=== PATIENT | male | born 1970 | race Caucasian/White ===

== ENCOUNTER 2022-02-06 09:13 | Emergency (ER) | payer OTHER, MEDICAID, SELFPAY ==
--- NOTE | ~2022-02-06 | CT_ITS ---
EXAMINATION: CT HEAD WITHOUT CONTRAST CLINICAL INFORMATION: Status post fall with head strike. COMPARISON: 02/10/[address] scan. TECHNIQUE: Contiguous axial imaging was performed from the skull base to vertex without intravenous administration of contrast. Coronal and sagittal reformatted images were obtained. This CT examination was performed using dose optimization techniques as appropriate, variously including the following: *Automated exposure control *Adjustment of mA and/or kV according to patient size (this includes techniques or standardized protocols for targeted exams where dose is matched to indication/reason for exam; i.e. extremities or head) *Use of iterative reconstruction technique DLP: 694 mGy-cm FINDINGS: There is mild widening of the cortical sulci and associated ventriculomegaly. The lateral ventricles are symmetrical. The third and fourth ventricles are in their normal midline position. The basilar and prepontine cisterns are unremarkable. There is no acute intra or extracerebral abnormality. There is no mass effect or midline shift. Sections through the bony calvarium show incidental hyperostosis frontalis interna and right frontal craniotomy defect without other significant abnormality. The orbits are intact. The paranasal sinuses are clear. The mastoid air cells are clear. CT/CT head/brain wo con IMPRESSION: No acute intracranial pathology.
[2022-02-06 09:37] VITALS: BP 122/74; PULSE 77; RESP 16; TEMP 36.8; O2SAT 99; BMI 38.5
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
[2022-02-06 12:04] VITALS: BP 126/75; PULSE 65; RESP 17; TEMP 36.6; O2SAT 96
== END 2022-02-06 12:08 | disposition home or self-care (01) ==
PROVIDERS: Emergency Provider Emergency Medicine; PCP Nurse Practitioner Family
DX: S00.83XA Contusion of other part of head, initial encounter (principal); Z87.820 Personal history of traumatic brain injury; W01.0XXA Fall on same level from slipping, tripping and stumbling without subsequent striking against object, initial encounter; Y93.9 Activity, unspecified; Y92.009 Unspecified place in unspecified non-institutional (private) residence as the place of occurrence of the external cause; Y99.9 Unspecified external cause status
CPT/HCPCS: 70450; 99284

== ENCOUNTER 2022-05-15 11:15 | Outpatient (REF) | payer OTHER, MEDICAID, SELFPAY ==
--- NOTE | ~2022-05-15 | US_ITS ---
EXAMINATION: US VENOUS ULTRASOUND WITH DOPPLER LOWER EXTREMITY, RIGHT CLINICAL INFORMATION: Right leg swelling. COMPARISON: Deep vein ultrasound from 11/30/2013 and 05/22/2018. TECHNIQUE: Ultrasound of the deep veins is performed from the hip to the calf with compression sonography and color and pulse Doppler assessment. Spectral analysis with color-flow imaging is performed. FINDINGS: Nonocclusive thrombus is present along the wall of the common femoral vein. Also, there is extensive thrombus of the femoral vein within the proximal, mid and lower thigh. The majority of the thrombus is partially occlusive. However, in the lower thigh, the thrombus completely fills the lumen of the vein and is occlusive. The thrombus of the popliteal vein is partially occlusive. There is limited visualization of calf veins. The peroneal veins cannot be visualized for diagnostic assessment. The posterior tibial veins are not optimally seen. The visualized tibial veins are compressible. Within the proximal thigh, the visualized saphenous vein is patent. No Mcclure's cyst. 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 There is limited visualization of the calf veins. The critical test result was discussed with Dr. Paola Donovan at 12:50 PM on 05/15/2022 and it was ascertained that the content and the importance of the findings was understood at the time of the direct communication.
== END 2022-05-15 11:16 | disposition home or self-care (01) ==
LOC: HO.US 11:15
PROVIDERS: PCP Nurse Practitioner Family; Visit Provider Nurse Practitioner Family
DX: R60.0 Localized edema (principal)
CPT/HCPCS: 93971

== ENCOUNTER 2023-05-05 10:18 | Outpatient (REF) | payer OTHER, MEDICAID, SELFPAY ==
[2023-05-05 11:04] LABS: Anion Gap 11 (12-20); Carbon Dioxide 26 mmol/L (22-29); Chloride 109 mmol/L (96-108); Potassium 4.5 mmol/L (3.3-5.1); Sodium 141 mmol/L (135-145)
[2023-05-05 11:07] LABS: Carbamazepine Tegretol 12.6 mcg/mL (5.0-12.0)
== END 2023-05-05 10:19 | disposition home or self-care (01) ==
LOC: HO.LAB 10:18
PROVIDERS: PCP Nurse Practitioner Family; Visit Provider Psychiatry & Neurology Neurology
DX: G40.909 Epilepsy, unspecified, not intractable, without status epilepticus (principal); Z79.899 Other long term (current) drug therapy
CPT/HCPCS: 36415; 80051; 80156

== ENCOUNTER 2023-06-10 07:37 | Outpatient (REF) | payer OTHER, MEDICAID, SELFPAY ==
--- NOTE | ~2023-06-10 | CT_ITS ---
EXAMINATION: CT HEAD WITHOUT CONTRAST CLINICAL INFORMATION: 53-year-old with seizure disorder. COMPARISON: 02/06/2022 CT brain. TECHNIQUE: Contiguous axial imaging was performed from the skull base to vertex without intravenous administration of contrast. This CT examination was performed using dose optimization techniques as appropriate, variously including the following: *Automated exposure control *Adjustment of mA and/or kV according to patient size (this includes techniques or standardized protocols for targeted exams where dose is matched to indication/reason for exam; i.e. extremities or head) *Use of iterative reconstruction technique DLP: 984 mGy-cm FINDINGS: Brain Volume: There is moderate generalized diffuse infratentorial and supratentorial brain parenchymal volume loss, grossly unchanged in appearance. Structural: No malformations. Brain and Meninges: Caceres-white matter differentiation appears grossly maintained. No acute territorial infarct, hemorrhage, extra-axial fluid collection, space-occupying process, or mass effect. Note is made of what appears to be some encephalomalacia involving the right parasylvian frontotemporal cortical and subcortical regions, which is stable in appearance from the previous study and is nonspecific, possibly reflecting remote trauma or other remote etiology. Correlate with patient's clinical history. Ventricles and Subarachnoid Spaces: The ventricular system and subarachnoid spaces are consistent with generalized diffuse volume loss without hydrocephalus, stable in appearance. Orbital Structures: Grossly unremarkable within the limitations of the study. Osseous Structures, Sinuses/Mastoids, Extracranial Soft Tissues: Redemonstrated is hyperostosis frontalis interna, which is an anatomic variant in addition to a right frontal convexity fabi hole craniostomy, unchanged in appearance. The visualized airspaces demonstrate a small retention cyst in the sphenoid sinus on the right and a tiny retention cyst in the anterior right maxillary sinus. The visualized extracranial soft tissue structures are grossly unremarkable. CT/CT head/brain wo IV con IMPRESSION: 1. No acute intracranial process. No interval change from previous study in right parasylvian frontotemporal encephalomalacia. Correlate with EEG findings. 2. Moderate generalized diffuse brain parenchymal volume loss without hydrocephalus, unchanged in appearance.
== END 2023-06-10 07:38 | disposition home or self-care (01) ==
LOC: HO.CT 07:37
PROVIDERS: PCP Nurse Practitioner Family; Visit Provider Psychiatry & Neurology Neurology
DX: G40.909 Epilepsy, unspecified, not intractable, without status epilepticus (principal)
CPT/HCPCS: 70450

== ENCOUNTER 2023-11-01 11:11 | Emergency (ER) | payer OTHER, MEDICAID, SELFPAY ==
--- NOTE | ~2023-11-01 | CT_ITS ---
EXAMINATION: CT HEAD WITHOUT IV CONTRAST CT CERVICAL SPINE WITHOUT IV CONTRAST INDICATION: Fall on Coumadin COMPARISON: MRI brain on 06/10/2023 TECHNIQUE: Multidetector CT acquisitions of the head and cervical spine were obtained without IV contrast. Multiplanar reformats were acquired and utilized for image interpretation. This CT examination was performed using dose optimization techniques as appropriate, variously including the following: *Automated exposure control *Adjustment of mA and/or kV according to patient size (this includes techniques or standardized protocols for targeted exams where dose is matched to indication/reason for exam; i.e. extremities or head) *Use of iterative reconstruction technique FINDINGS: HEAD: No acute intracranial hemorrhage or infarct. The dawn-white matter differentiation is preserved. Unchanged encephalomalacic changes in the right temporal lobe. No midline shift or hydrocephalus. The ventricular system is unchanged in configuration or size. The normal acute extra-axial fluid collections. Hyperostosis frontalis interna. The osseous structures are otherwise unremarkable. No orbital pathology. Mild mucosal thickening of the paranasal sinuses. The mastoid air cells are clear. CERVICAL SPINE: There is no acute fracture and there is no acute subluxation. The craniocervical and atlantoaxial articulations are normal. Multilevel degenerative changes including endplate osteophytosis, disc space narrowing, and uncovertebral hypertrophy. Mild degenerative retrolisthesis at C4-C5. There is no prevertebral soft tissue swelling. No significant soft tissue abnormality within the neck. The visualized lung apices are clear. CT/CT head/brain wo IV con IMPRESSION: No acute intracranial abnormality. No acute osseous abnormality within the cervical spine.
--- NOTE | ~2023-11-01 | XR_ITS ---
EXAMINATION: XR FOREARM, RIGHT CLINICAL INFORMATION: Deformity COMPARISON: None available. TECHNIQUE: AP and lateral views of the right forearm were obtained. FINDINGS: The bones and soft tissues are normal. No fracture. Imaged portions of the elbow and wrist are unremarkable. XR/XR forearm RT 2V IMPRESSION: No radiographic evidence of acute fracture or dislocation.
--- NOTE | ~2023-11-01 | CT_ITS ---
EXAMINATION: CT HEAD WITHOUT IV CONTRAST CT CERVICAL SPINE WITHOUT IV CONTRAST INDICATION: Fall on Coumadin COMPARISON: MRI brain on 06/10/2023 TECHNIQUE: Multidetector CT acquisitions of the head and cervical spine were obtained without IV contrast. Multiplanar reformats were acquired and utilized for image interpretation. This CT examination was performed using dose optimization techniques as appropriate, variously including the following: *Automated exposure control *Adjustment of mA and/or kV according to patient size (this includes techniques or standardized protocols for targeted exams where dose is matched to indication/reason for exam; i.e. extremities or head) *Use of iterative reconstruction technique FINDINGS: HEAD: No acute intracranial hemorrhage or infarct. The dawn-white matter differentiation is preserved. Unchanged encephalomalacic changes in the right temporal lobe. No midline shift or hydrocephalus. The ventricular system is unchanged in configuration or size. The normal acute extra-axial fluid collections. Hyperostosis frontalis interna. The osseous structures are otherwise unremarkable. No orbital pathology. Mild mucosal thickening of the paranasal sinuses. The mastoid air cells are clear. CERVICAL SPINE: There is no acute fracture and there is no acute subluxation. The craniocervical and atlantoaxial articulations are normal. Multilevel degenerative changes including endplate osteophytosis, disc space narrowing, and uncovertebral hypertrophy. Mild degenerative retrolisthesis at C4-C5. There is no prevertebral soft tissue swelling. No significant soft tissue abnormality within the neck. The visualized lung apices are clear. CT/CT cervical spine wo IV con IMPRESSION: No acute intracranial abnormality. No acute osseous abnormality within the cervical spine.
[2023-11-01 11:20] VITALS: BP 126/78; BP 143/72; PULSE 83; PULSE 93; TEMP 36.8; O2SAT 93; O2SAT 96; BMI 38.5
--- NOTE | 2023-11-01 11:22 | PC.NURSE ---
a&ox4, vss and up to date, nsr on the resume writer. pt presents to the ED d/t a new onset seizure. pt has a hx of seizures. states last one was a year ago. pt states he is compliant w/ meds but believes there is a med error w/ most recent prescription brought to his house. pt verbalizes dizziness x 1 week. seizure precautions in place. currently c/o headache/dizziness/lightheadedness. no sob/wob noted. respirations even and unlabored. mother bedside for support. call hodgson placed within reach.
--- NOTE | 2023-11-01 11:43 | ECG_ITS ---
Test Reason : SEIZURE Blood Pressure : / mmHG Vent. Rate : 076 BPM Atrial Rate : 076 BPM P-R Int : 158 ms QRS Dur : 096 ms QT Int : 374 ms P-R-T Axes : 055 -02 -18 degrees QTc Int : 420 ms Normal sinus rhythm Nonspecific ST abnormality Abnormal ECG When compared with ECG of 27-FEB-2020 06:54, No significant change was found Referred By: Leslie Crawford Electronically Signed By:BRYON ARIAS
--- NOTE | 2023-11-01 12:13 | PC.NURSE ---
labs obtained/sent by [facility].
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
[2023-11-01 12:19] LABS: MANUAL DIFF FLAG NO
[2023-11-01 12:20] LABS: Basophils Percent Auto 0.3 % (0-2); Eosinophils Absolute Auto 0.1 X10*3/uL (0.0-0.4); Eosinophils Percent Auto 1.3 % (0-4); Hematocrit 32.1 % (42.0-52.0); Hemoglobin 9.6 g/dl (14.0-18.0); Imm Gran Abs Auto 0.03 X10*3/uL (0.00-0.03); Imm Gran Pct Auto 0.4 % (0.0-0.4); Lymphocytes Absolute Auto 1.5 X10*3/uL (1.2-4.9); Lymphocytes Percent Auto 19.6 % (20-40); Mean Corpuscular HGB Conc 29.9 g/dl (31.0-36.0); Mean Corpuscular Hemoglobin 23.8 pg (27.0-33.0); Mean Corpuscular Volume 79.7 fL (80.0-98.0); Mean Platelet Volume 8.7 fL (9.4-12.4); Monocytes Absolute Auto 0.5 X10*3/uL (0.1-1.2); Monocytes Percent Auto 6.3 % (2-11); Neutrophils Absolute Auto 5.4 x10*3/uL (2.0-8.3); Neutrophils Percent Auto 72.1 % (45-73); Platelet Count 220 X10*3/uL (160-400); Red Blood Count 4.03 X10*6/uL (4.60-5.80); Red Cell Distribution Width 22.6 % (11.0-16.0); White Blood Count 7.5 X10*3/uL (4.8-10.8)
[2023-11-01 12:25] LABS: INTERNATIONAL NORM RATIO 3.1 (0.9-1.1); Prothrombin Time 37.7 SEC (11.1-13.3)
[2023-11-01 12:34] LABS: Alanine Aminotransferase 13 U/L (0-40); Albumin Level 3.5 g/dL (3.5-5.0); Alkaline Phosphatase 131 U/L (39-117); Anion Gap 11 (12-20); Aspartate Amino Transferase 12 U/L (5-37); Bilirubin Total 0.2 mg/dL (0.0-1.0); Blood Urea Nitrogen 12 mg/dL (9-16); Calcium 8.5 mg/dL (8.4-10.2); Carbon Dioxide 25 mmol/L (22-29); Chloride 110 mmol/L (96-108); Creatinine Clr Calc Pharmacy 149.3; Estimated Glomerular Filt Rate > 60; Glucose Random 135 mg/dL (60-115); Potassium 4.1 mmol/L (3.3-5.1); Sodium 142 mmol/L (135-145); Total Protein 6.8 g/dL (6.5-8.0)
--- NOTE | 2023-11-01 12:34 | PC.NURSE ---
pt to CT at this time.
[2023-11-01 12:37] LABS: Carbamazepine Tegretol 12.8 mcg/mL (5.0-12.0)
[2023-11-01 12:41] LABS: COVID-19 Test Negative (Negative); IDNOW Serial# 08D9AD1C
[2023-11-01 12:42] LABS: IDNOW Serial# 152EDE1D; Influenza A Negative (Negative); Influenza B2 Negative (Negative)
[2023-11-01 14:35] VITALS: BP 114/63; PULSE 69; RESP 16; O2SAT 97
--- NOTE | 2023-11-01 14:35 | PC.NURSE ---
vss and up to date. nsr on the alarm security or surveillance monitor. pt continues to rest in no apparent distress at this time. pt c/o slight WARD at this time. respirations remain even and unlabored. seizure precautions remain in place. mother bedside for support. call hodgson placed within reach.
--- NOTE | 2023-11-01 15:19 | PC.NURSE ---
urine obtained/sent to lab.
[2023-11-01 15:30] LABS: Appearance Urine Clear; Color Urine Yellow; Glucose Urine UA Negative (Negative); Leukocyte Esterase Urine Negative (Negative); Nitrite Urine Negative (Negative); Urine Blood Negative (Negative); Urine Ketones Negative (Negative); Urine Protein Negative (Neg-Trace)
--- NOTE | 2023-11-01 15:57 | PC.NURSE ---
pt able to ambulate w/ steady gait w/ use of walker for assistance prior to ED departure.
== END 2023-11-01 15:57 | disposition home or self-care (01) ==
PROVIDERS: Emergency Provider Student in an Organized Health Care Education/Training Program; PCP Nurse Practitioner Family
DX: R55 Syncope and collapse (principal); R79.1 Abnormal coagulation profile; Z11.52 Encounter for screening for COVID-19; Z87.820 Personal history of traumatic brain injury
CPT/HCPCS: 36415; 70450; 72125; 73090; 80053; 80156; 81003; 85025; 85610; 87502; 87635; 93005; 99284; 99285

== ENCOUNTER → 2023-11-01 11:43 | Outpatient (BNV) | payer OTHER, MEDICAID, SELFPAY | PROVIDERS: Emergency Provider Student in an Organized Health Care Education/Training Program; PCP Nurse Practitioner Family; Visit Provider Internal Medicine | DX: R94.31 Abnormal electrocardiogram [ECG] [EKG] (principal) | CPT/HCPCS: 93010 ==

== ENCOUNTER 2024-10-16 09:57 | Emergency (ER) | payer MEDICARE, SELFPAY ==
--- NOTE | ~2024-10-16 | XR_ITS ---
CLINICAL HISTORY: fall on anticoagulation, closed head injury 1 view chest x-ray Comparison: None Findings: The lungs are adequately expanded. No focal confluent opacity. No effusion or pneumothorax. Cardiac and mediastinal contours are within normal limits. No acute osseous abnormality. The tip of the right-sided chest port is in the upper SVC. Impression: No acute process. This document has been electronically signed by: Prince Mcdonald MD on 10/16/2024 11:59:12
--- NOTE | ~2024-10-16 | CT_ITS ---
CLINICAL HISTORY: fall on anticoagulation, closed head injury CT head without contrast Comparison: CT/REG/SR - CT HEAD/BRAIN WO IV CON - 11/01/23 12:33 EST Findings: Moderate cerebral atrophy and compensatory ventriculomegaly. Encephalomalacia in the right temporal lobe, unchanged from prior. No intracranial hemorrhage, mass effect or midline shift. There is no sinus or mastoid fluid. The orbits are within normal limits. There is a right frontal fabi hole present. No acute skull fracture. IMPRESSION: 1. No acute intracranial findings This document has been electronically signed by: Marco Canela MD on 10/16/2024 22:20:33
[2024-10-16 10:38] VITALS: BP 101/64; PULSE 77; RESP 18; TEMP 36.1; O2SAT 94; BMI 36.7
--- NOTE | 2024-10-16 11:36 | ECG_ITS ---
Test Reason : FALL ON ANTICOAGULATION, CLOSED HEAD INJURY Blood Pressure : / mmHG Vent. Rate : 067 BPM Atrial Rate : 067 BPM P-R Int : 174 ms QRS Dur : 090 ms QT Int : 386 ms P-R-T Axes : 014 -08 -04 degrees QTc Int : 407 ms Normal sinus rhythm Nonspecific ST abnormality Abnormal ECG When compared with ECG of 01-NOV-2023 12:05, No significant change was found Referred By: Filomena Scruggs Electronically Signed By:EUSEBIA SPAULDING MD
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
--- OUTSIDE RECORDS SUMMARY | 2024-10-16 12:06 | XMS_ITS | Continuity of Care Document ---
Author Organization [facility] ancer Care Address [address] [place] [address]- Care Team Providers Care Mandarin Teacher Name Role Phone Zion PADILLA, Paola Nevarez Primary Care Physician Encounter [facility] Date(s): 09/15/24 - 10/15/24 [facility] [address] [place] [id number] Attending Physician: Admtr, Loli Admitting Physician: Admtr, Loli Referring Physician: Admtr, Ar8 Encounter Type: Triage Allergies, Adverse Reactions, Alerts Substance Criticality Severity Reaction Reaction Severity Status simvastatin Active Dilantin Active Percocet 7.5/325 VOMITING Act chauncey CeleXA seizure Active Immunizations Given and Recorded Vaccine Date Status Refusal Reason pneumococcal 20-valent conjugate vaccine 09/15/24 Given influenza virus vaccine, inactivated 07/18/23 Give n influenza virus vaccine, inactivated 10/18/21 Cristo rded influenza virus vaccine, inactivated 08/06/19 Give n influenza virus vaccine, inactivated 07/10/18 Give n influenza virus vaccine, inactivated 1 07/31/17 Gi amari influenza virus vaccine, inactivated 09/18/16 Give n influenza virus vaccine, inactivated 07/11/15 Give n influenza virus vaccine, inactivated 06/28/14 Cristo rded influenza virus vaccine, inactivated 2 07/21/13 Gi amari influenza virus vaccine, inactivated 07/19/13 Cristo rded influenza virus vaccine, inactivated 3 07/13/12 Gi amari influenza virus vaccine, inactivated 05/30/12 Cristo rded influenza virus vaccine, inactivated 4 06/14/10 Gi amari SARS-CoV-2 mRNA ([id number]-[id number]) vax 10/18/21 Recorded SARS-CoV-2 (COVID-19) mRNA BNT-162b2 vac 03/02/21 Given SARS-CoV-2 (COVID-19) mRNA BNT-162b2 vac 02/09/21 Given pneumococcal 23-valent vaccine 10/24/19 Given tetanus-diphtheria toxoids (Td) 07/06/15 Recorded tetanus-diphtheria toxoids (Td) 09/14/03 Given tetanus/diphtheria/pertussis, acel(Tdap) 06/03/14 Given Fluvirin (oldterm) 5 06/18/11 Given Influenza Virus Vaccine (oldterm) 6 07/04/09 Given Influenza Virus Vaccine (oldterm) 07/21/08 Given Influenza Inactive (IM) (oldterm) 08/14/07 Given 1Result Comment: [07/31/2017] [facility] [id number] 2Admin Note: given at [address] Note: [facility]Ain Note: Received at [address] Note: GIVEN AT [address] Note: GIVEN BY DES SEWELL BY RENE Donnelly Advair HFA 115 mcg / 21 mcg 2 puffs, Inhalation, 2 times a day, BULK., # 12 Gm, 5 Refills, Maintenance, 08/27/24 4:15:00 PM EST, [facility], 30, INHALE TWO PUFFS BY MOUTH TWICE A DAY (BULK), 188, cm, 08/23/24 11:22:00 EST, Height, 138.1, kg, 08/23/24 11:22:00 EST, Dry Weight Start Date: 08/27/24 Status: Ordered Quantity: 12.0 Unit: g Repeat number: 1 amitriptyline 50 mg oral tablet 1 tablet = 50 mg, By Mouth, Daily at bedtime, 0 Refills, Maintenance, 09/18/16 10:14:57 AM EST Start Date: 09/18/16 Status: Ordered Repeat number: 1 atorvastatin 10 mg oral tablet 1 tablet, By Mouth, Daily, ^1R4., # 28 tablet, 10 Refills, Maintenance, 08/30/24 11:37:00 AM EST, [facility], 188, cm, 08/23/24 11:22:00 EST, Height, 138.1, kg, 08/23/24 11:22:00 EST, Dry Weight Start Date: 08/30/24 Status: Ordered Quantity: 28.0 Unit: tablet Repeat number: 1 Cane See Instructions, # 1 each, Refills 0, Tot. Refills 0, Maintenance, dx: use as directed for foot pain/gait disturbance, 08/04/14 11:36:38 AM EDT, Compound Start Date: 08/04/14 Status: Ordered Quantity: 1.0 Unit: each Repeat number: 1 Carbatrol 300 mg oral capsule, extended release 1 capsule = 300 mg, By Mouth, 3 times a day, # 60 capsule, 0 Refills, Maintenance, 09/18/16 10:13:37AM EST, CR Capsule Start Date: 09/18/16 Status: Ordered Quantity: 60.0 Unit: capsule Repeat number: 1 colestipol 1 gm oral tablet 1 tablet = 1 Gm, By Mouth, 2 times a day, # 100 tablet, 1 Refills, Maintenance, 08/30/24 4:11:00 PMEST, Tablet, [facility] #[id number], Partial fill upon patient request if the prescription is for a schedule II opioid drug., 188, cm, 08/30/24 11:29:00 EST, Height, 137.7, kg, 08/30/24 11:29:00EST, Dry Weight Start Date: 08/30/24 Status: Ordered Quantity: 100.0 Unit: tablet Repeat number: 2 docusate sodium 100 mg oral capsule 1 capsule = 100 mg, By Mouth, 2 times a day, PRN for constipation, # 60 capsule, 4 Refills, Maintenance, 12/25/23 11:58:00 AM EDT, Capsule, [facility] #[id number], Partial fill upon patient request if the prescription is for a schedule II opioid drug., 188, cm, 12/25/23 11:33:00 EDT, Height, 138, kg, 12/15/23 16:43:00 EST, Dry Weight Start Date: 12/25/23 Status: Ordered Quantity: 60.0 Unit: capsule Repeat number: 5 enoxaparin 150 mg/mL injectable solution = 135 mg, Subcutaneous Injection, Every 12 hours, # 180 each, 1 Refills, Maintenance, 06/28/24 10:28:00 AM EDT, Solution, [facility] #[id number], Partial fill upon patient request if the prescription is for a schedule II opioid drug., 188, cm, 06/28/24 10:00:00 EDT, Height, 138.9, kg, 06/28/24 1 0:00:00 EDT, Dry Weight Start Date: 06/28/24 Stop Date: 12/25/24 Status: Ordered Quantity: 180.0 Unit: each Repeat number: 2 famotidine 20 mg oral tablet 20 mg, 1, tablet, By Mouth, Daily, # 180 tablet, Refills 0, Tot. Refills 0, Maintenance, 06/29/24 3:47:00 PM EDT, Route to Pharmacy Electronically, [facility] #[id number], Partial fill upon patient request if the prescription is for a schedule II opioid drug., 188, cm, 06/28/24 10:00:00 EDT, Height, 138.9, kg, 06/28/24 10:00:00 EDT, Dry Weight Start Date: 06/29/24 Status: Ordered Quantity: 180.0 Unit: tablet Repeat number: 1 ferrous sulfate 325 mg oral enteric coated tablet 1, tablet, By Mouth, Daily, # 30 tablet, Refills 5, Maintenance, 08/08/24 10:42:00 AM EDT, Route toPharmacy Electronically, [facility] #[id number], 188, cm, 07/26/24 12:48:00 EDT, Height, 139.3, kg, 07/26/24 12:48:00 EDT, Dry Weight Start Date: 08/08/24 Status: Ordered Quantity: 30.0 Unit: tablet Repeat number: 1 levothyroxine 0.1 mg oral tablet 1 tablet, By Mouth, Daily, # 30 tablet, 2 Refills, Maintenance, 05/16/21 10:10:00 AM EDT, [facility] #[id number], 188, cm, 03/29/21 2:00:00 EDT, Height, 138.4, kg, 03/29/21 2:00:00 EDT, Dry Weight Start Date: 05/16/21 Status: Ordered Quantity: 30.0 Unit: tablet Repeat number: 1 lift chair lift chair, See Instructions, # 1 each, Refills 0, Tot. Refills 0, Maintenance, DX: Traumatic BrainInjury S06.9XAA, Seizure R56.9, Ractal Cancer C20, Severe Obesity E66.01, 09/27/24 1:09:00 PM EST, Supply Start Date: 09/27/24 Status: Ordered Quantity: 1.0 Unit: each Repeat number: 1 Lomotil 0.025 mg-2.5 mg oral tablet 2, tablet, By Mouth, 4 times a day, PRN, # 100 tablet, Refills 1, Tot. Refills 1, Maintenance, for loose stool, 08/30/24 4:11:00 PM EST, Route to Pharmacy Electronically, [facility] #[id number] Tablet, Partial fill upon patient request if the prescription is for a schedule II opioid drug., 188, cm, 08/30/24 11:29:00 EST, Height, 137.7, kg, 08/30/24 11:29:00 EST, Dry Weight Start Date: 08/30/24 Status: Ordered Quantity: 100.0 Unit: tablet Repeat number: 2 loperamide 2 mg oral tablet See Instructions, Take 2 tablets after the first diarrhea and then 1 tablet after each subsequent diarrhea. not to exceed 8 capsules, or 16 mg, in 24 hours, # 90 tablet, 0 Refills, Maintenance, 06/28/24 10:28:00 AM EDT, [facility] #[id number], Partial fill upon patient request if the prescription is for a schedule II opioid drug., 188, cm, 06/28/24 10:00:00 EDT, Height, 138.9, kg, 06/28/24 10:00:00 EDT, Dry Weight Start Date: 06/28/24 Status: Ordered Quantity: 90.0 Unit: tablet Repeat number: 1 LR IV Infusion, 0 Refills, Maintenance Start Date: 12/19/23 Status: Ordered Repeat number: 1 LR IV Infusion, LR for endoscopy procedure then d'c, 0 Refills, Maintenance Start Date: 12/19/23 Status: Ordered Repeat number: 1 omeprazole 20 mg oral enteric coated capsule 1 capsule, By Mouth, Daily, ^1R1., # 30 capsule, 5 Refills, Maintenance, 09/24/24 7:46:00 AM EST, [facility], Please ask patient to call the office and schedule an appt for further refills, 188, cm, 09/23/24 9:11:00 EST, Height, 138, kg, 09/06/24 8:07:00 EST, Dry Weight Start Date: 09/24/24 Status: Ordered Quantity: 30.0 Unit: capsule Repeat number: 6 ondansetron 4 mg oral tablet, disintegrating 2 tablet = 8 mg, By Mouth, Every 8 hours, PRN as needed for nausea/vomiting, # 180 tablet, 1 Refills, Maintenance, 06/28/24 10:28:00 AM EDT, DIS Tablet, [facility] #[id number], Partial fill upon patient request if the prescription is for a schedule II opioid drug., 188, cm, 06/28/24 10:00:00 EDT, Height, 138.9, kg, 06/28/24 10:00:00 EDT, Dry Weight Start Date: 06/28/24 Status: Ordered Quantity: 180.0 Unit: tablet Repeat number: 2 prochlorperazine 10 mg oral tablet 1 tablet, By Mouth, 4 times a day, PRN NEEDED FOR NAUSEA OR VOMITING, # 360 tablet, 0 Refills, Maintenance, 10/13/24 12:49:00 PM EST, [facility] #[id number], 188, cm, 10/12/24 14:49:00 EST, Height, 133.9, kg, 10/12/24 14:49:00 EST, Dry Weight Start Date: 10/13/24 Status: Ordered Quantity: 360.0 Unit: tablet Repeat number: 1 TEGretol 100 mg oral tablet, chewable 100 mg, 1, tablet, By Mouth, Daily at bedtime, Refills 0, Maintenance, 09/18/16 10:13:10 AM EST Start Date: 09/18/16 Status: Ordered Repeat number: 1 ultrasound right and LLE rule out DVT ultrasound right and LLE rule out DVT, See Instructions, # 1 kit, Refills 0, Tot. Refills 0, Maintenance, call [phone] to book ultrasound TODAY!, 03/29/21 1:38:00 AM EDT, Supply Start Date: 03/29/21 Status: Ordered Quantity: 1.0 Unit: kit Repeat number: 1 Ventolin HFA 108 mcg/inh inhalation aerosol with adapter 2 puffs, Inhalation, Every 4 hours, PRN IF NEEDED FOR WHEEZING (BULK), # 18 Gm, 5 Refills, Maintenance, 08/27/24 4:15:00 PM EST, [facility], 188, cm, 08/23/24 11:22:00 EST, Height, 138.1, kg,08/23/24 11:22:00 EST, Dry Weight Start Date: 08/27/24 Status: Ordered Quantity: 18.0 Unit: g Repeat number: 1 Vimpat 150 mg oral tablet 1 tablet = 150 mg, By Mouth, 2 times a day, # 28 tablet, 0 Refills, Maintenance, 10/24/19 11:29:00 AM EST, Tablet, [facility] #[id number], 188, cm, 10/24/19 7:40:00 EST, Height, 136.5, kg, 10/23/19 22:04:00 EST, Dry Weight Start Date: 10/24/19 Stop Date: 11/07/19 Status: Ordered Quantity: 28.0 Unit: tablet Repeat number: 1 Problem List Condition Confirmation Course Effective Dates Status Health Status Informant DVT (deep venous thrombosis) Confirmed Active Epilepsy Confirmed Active History of traumatic brain injury Confirmed Active Hypercholesterolemia Confirmed 12/07/07 Active Hypogonadism Confirmed Active Hypothyroidism Confirmed Active Iron deficiency anemia Confirmed Active Rectal cancer Confirmed Active Obstructive sleep apnea Confirmed Active Postural dizziness with presyncope Confirmed Active Seizure Confirmed Active Severe obesity (BMI 35.0-39.9) with comorbidity Confirmed Active TBI (traumatic brain injury) Confirmed Active Vitamin D deficiency Confirmed Active Social History Social History Type Response Smoking Status Never (less than 100 in lifetime) entered on: 04/02/23 Sex Male Sex Representation Male (finding) Patient Care team information Care Team Personnel Name: Keyanna Smith RN Position: [facility] RN Member Role: Primary Care Nurse Name: Carley Hopper RN Position: [facility] RN Member Role: Primary Care Nurse Name: Pilar Bradley RN Position: [facility] RN Member Role: Primary Care Nurse Name: Elizabeth Cheema RN Position: [facility] Onco RN Member Role: Primary Care Nurse Name: Florencia Savage RN Position: [facility] RN Member Role: Primary Care Nurse Name: Paola Donovan NP Position: [facility] PCO Associate Professional Member Role: PCP Address: [address] [place] [address]- [place] Telecom: Name: Alyssa Taylor RN Position: [facility] RN Member Role: Primary Care Nurse Name: Casi Bruno RN Position: [facility] Onco RN Member Role: Primary Care Nurse Name: Sang Lopez RN Position: [facility] Onco RN Member Role: Primary Care Nurse Name: Diana Donahue LPN Position: [facility] RN Member Role: Primary Care Nurse Care Team Related Persons Name: RICCARDO DIA Name: PEDRO DIA Insurance Providers Guarantor name: [facility] Plan Information #: 1 Payer: [facility] [employer] Member Number: NA Policy Number: NA Group Number: NA
--- OUTSIDE RECORDS SUMMARY | 2024-10-16 12:06 | XMS_ITS | Continuity of Care Document ---
Author Organization [facility] Hipolito Obie lt Address [address] [place] [address]- Care Team Providers Care Math Interventionist Name Role Phone Zion PADILLA, Paola Nevarez Primary Care Physician Encounter [facility] [place] Date(s): 08/27/24 - 09/26/24 [facility] Joseph Adult [address] [place] [address]- Encounter Type: Triage Allergies, Adverse Reactions, Alerts Substance Criticality Severity Reaction Reaction Severity Status simvastatin Active Dilantin Active CeleXA seizure Active Percocet 7.5/325 VOMITING Act chauncey Immunizations Given and Recorded Vaccine Date Status [...] inactivated 4 06/14/10 Gi amari SARS-CoV-2 mRNA (ivgjown-oyqs-qoxqa) vax 10/18/21 Recorded SARS-CoV-2 (COVID-19) mRNA BNT-162b2 vac 03/02/21 Given SARS-CoV-2 (COVID-19) mRNA BNT-162b2 vac 02/09/21 Given pneumococcal 23-valent vaccine 10/24/19 Given tetanus-diphtheria toxoids (Td) 07/06/15 Recorded tetanus-diphtheria toxoids (Td) 09/14/03 Given tetanus/diphtheria/pertussis, acel(Tdap) 06/03/14 Given Fluvirin (oldterm) 5 06/18/11 Given Influenza Virus Vaccine (oldterm) 6 07/04/09 Given Influenza Virus Vaccine (oldterm) 07/21/08 Given Influenza Inactive (IM) (oldterm) 08/14/07 Given 1Result Comment: [07/31/2017] [facility] [id number] 2Admin Note: given at [facility] Note: [facility] 4Admin Note: Received at [facility] Note: GIVEN AT [facility] 6Ain Note: GIVEN BY [facility] BY RENE Donnelly Advair HFA 115 mcg / 21 mcg 2 puffs, Inhalation, 2 times a day, BULK., # 12 Gm, 5 Refills, Maintenance, 08/27/24 4:15:00 PM EST, [facility], 30, INHALE TWO PUFFS BY MOUTH [...] 10 Refills, Maintenance, 08/30/24 11:37:00 AM EST, [facility], 188, cm, 08/23/24 11:22:00 EST, Height, [...] 1 Refills, Maintenance, 08/30/24 4:11:00 PMEST, Tablet, [facility][id number], Partial fill upon patient request if the prescription is for a schedule II opioid drug., 188, cm, 08/30/24 11:29:00 EST, Height, 137.7, kg, 08/30/24 11:29:00EST, Dry Weight Start Date: 08/30/24 Status: Ordered Quantity: 100.0 Unit: tablet Repeat number: 2 dexamethasone 4 mg oral tablet 1 tablet = 4 mg, By Mouth, Daily, for 7 days, # 7 tablet, 0 Refills, Acute 09/30/24 9:42:00 AM EST,09/23/24 9:42:00 AM EST, Tablet, [facility] #[id number], Partial fill upon patient request if the prescription is for a schedule II opioid drug., 188, cm, 09/23/24 9:11:00 EST, Height, 138, kg, 09/06/24 8:07:00 EST, Dry Weight Start Date: 09/23/24 Stop Date: 09/30/24 Status: Ordered Quantity: 7.0 Unit: tablet Repeat number: 1 docusate sodium 100 mg oral capsule 1 capsule = 100 mg, By Mouth, 2 times a day, PRN for constipation, # 60 capsule, 4 Refills, Maintenance, 12/25/23 11:58:00 AM EDT, Capsule, [facility] #[id number], Partial fill upon patient request if the [...] Refills, Maintenance, 06/28/24 10:28:00 AM EDT, Solution, [facility] #[id number], Partial fill upon patient request if the [...] 3:47:00 PM EDT, Route to Pharmacy Electronically, [facility] #[id number], Partial fill upon patient request if the [...] 08/08/24 10:42:00 AM EDT, Route toPharmacy Electronically, [facility] #[id number], 188, cm, 07/26/24 12:48:00 EDT, Height, 139.3, kg, 07/26/24 12:48:00 EDT, Dry Weight Start Date: 08/08/24 Status: Ordered Quantity: 30.0 Unit: tablet Repeat number: 1 levothyroxine 0.1 mg oral tablet 1 tablet, By Mouth, Daily, # 30 tablet, 2 Refills, Maintenance, 05/16/21 10:10:00 AM EDT, [facility] #[id number], 188, cm, 03/29/21 2:00:00 EDT, Height, 138.4, kg, 03/29/21 2:00:00 EDT, Dry Weight Start Date: 05/16/21 Status: Ordered Quantity: 30.0 Unit: tablet Repeat number: 1 Lomotil 0.025 mg-2.5 mg oral tablet 2, tablet, By Mouth, 4 times a day, PRN, # 100 tablet, Refills 1, Tot. Refills 1, Maintenance, for loose stool, 08/30/24 4:11:00 PM EST, Route to Pharmacy Electronically, [facility] #[id number] Tablet, Partial fill upon patient request if [...] 0 Refills, Maintenance, 06/28/24 10:28:00 AM EDT, [facility] #[id number], Partial fill upon patient request if the [...] 5 Refills, Maintenance, 09/24/24 7:46:00 AM EST, [facility], Please ask patient to call [...] Maintenance, 06/28/24 10:28:00 AM EDT, DIS Tablet, [facility] #[id number], Partial fill upon patient request if the prescription is for a schedule II opioid drug., 188, cm, 06/28/24 10:00:00 EDT, Height, 138.9, kg, 06/28/24 10:00:00 EDT, Dry Weight Start Date: 06/28/24 Status: Ordered Quantity: 180.0 Unit: tablet Repeat number: 2 prochlorperazine 10 mg oral tablet 1 tablet = 10 mg, By Mouth, 4 times a day, PRN Nausea & Vomiting, # 360 tablet, 1 Refills, Maintenance, 06/28/24 10:28:00 AM EDT, Tablet, [facility] #[id number], Partial fill upon patient request if the prescription is for a schedule II opioid drug., 188, cm, 06/28/24 10:00:00 EDT, Height, 138.9, kg, 06/28/24 10:00:00 EDT, Dry Weight Start Date: 06/28/24 Status: Ordered Quantity: 360.0 Unit: tablet Repeat number: 2 TEGretol 100 mg oral tablet, chewable 100 mg, 1, tablet, By Mouth, Daily at bedtime, Refills 0, Maintenance, 09/18/16 10:13:10 AM EST Start Date: 09/18/16 Status: Ordered Repeat number: 1 ultrasound right and LLE rule out DVT ultrasound right and LLE rule out DVT, See Instructions, # 1 kit, Refills 0, Tot. Refills 0, Maintenance, call [phone] to book ultrasound TODAY!, 03/29/21 1:38:00 AM EDT, Supply Start Date: 03/29/21 Status: Ordered Quantity: 1.0 Unit: kit Repeat number: 1 Ventolin HFA 108 mcg/inh inhalation aerosol with adapter 2 puffs, Inhalation, Every 4 hours, PRN IF NEEDED FOR WHEEZING (BULK), # 18 Gm, 5 Refills, Maintenance, 08/27/24 4:15:00 PM EST, [facility], 188, cm, 08/23/24 11:22:00 EST, Height, 138.1, kg,08/23/24 11:22:00 EST, Dry Weight Start Date: 08/27/24 Status: Ordered Quantity: 18.0 Unit: g Repeat number: 1 Vimpat 150 mg oral tablet 1 tablet = 150 mg, By Mouth, 2 times a day, # 28 tablet, 0 Refills, Maintenance, 10/24/19 11:29:00 AM EST, Tablet, [facility] #[id number], 188, cm, 10/24/19 7:40:00 EST, Height, 136.5, [...] Team Personnel Name: Keyanna Smith RN Position: S RN Member Role: Primary Care Nurse Name: Carley Hopper RN Position: S RN Member Role: Primary Care Nurse Name: Pilar Bradley RN Position: S RN Member Role: Primary Care Nurse Name: Florencia Savage RN Position: [facility] RN Member Role: Primary Care Nurse Name: Zion PADILLA, Paola Nevarez Position: [facility] PCO Associate Professional Member Role: PCP Address: [address] [place] [phone]- Telecom: Name: Alyssa Taylor RN Position: [facility] RN Member Role: Primary Care Nurse Name: Casi Bruno RN Position: [facility] Onco RN Member Role: Primary Care Nurse Name: Diana Donahue LPN Position: [facility] RN Member Role: Primary Care Nurse Care Team Related Persons Name: RICCARDO DIA Name: PEDRO DIA Insurance Providers Guarantor name: [facility] Plan Information #: 1 Payer: [facility] Member Number: NA Policy Number: NA Group Number: NA
--- OUTSIDE RECORDS SUMMARY | 2024-10-16 12:06 | XMS_ITS | Continuity of Care Document ---
Author Organization [facility] Hipolito Obie lt Address [address] [place] [address]- Care Team Providers Care Retina Subspecialist Name Role Phone Zion PADILLA, Paola Nevarez Primary Care Physician [place] [facility] [place] 10[place]01/24 [facility] Hipolito Adult [address] [place] [address]- Encounter Type: Triage Allergies, Adverse Reactions, Alerts [...] inactivated 4 06/14/10 Gi amari SARS-CoV-2 mRNA (nhsyalf-mhnd-scyvo) vax 10/18/21 Recorded SARS-CoV-2 (COVID-19) mRNA BNT-162b2 vac 03/02/21 Given SARS-CoV-2 (COVID-19) mRNA BNT-162b2 vac 02/09/21 Given pneumococcal 23-valent vaccine 10/24/19 Given tetanus-diphtheria toxoids (Td) 07/06/15 Recorded tetanus-diphtheria toxoids (Td) 09/14/03 Given tetanus/diphtheria/pertussis, acel(Tdap) 06/03/14 Given Fluvirin (oldterm) 5 06/18/11 Given Influenza Virus Vaccine (oldterm) 6 07/04/09 Given Influenza Virus Vaccine (oldterm) 07/21/08 Given Influenza Inactive (IM) (oldterm) 08/14/07 Given 1Result Comment: [07/31/2017] [facility] [id number] 2Admin Note: given at [facility]: [facility] 4Admin Note: Received at [facility] 5[facility] Note: GIVEN AT [facility] 6Ain Note: GIVEN BY [facility] BY RENE Donnelly Advair HFA 115 mcg / 21 mcg 2 puffs, Inhalation, 2 times a day, BULK., # 12 Gm, 5 Refills, Maintenance, 08/27/24 4:15:00 PM EST, [facility], 30, INHALE TWO PUFFS BY MOUTH [...] 10 Refills, Maintenance, 08/30/24 11:37:00 AM EST, [facility], 188, cm, 08/23/24 11:22:00 EST, Height, [...] 1 Refills, Maintenance, 08/30/24 4:11:00 PMEST, Tablet, [facility] #[id number], Partial fill upon patient request if the [...] Refills, Maintenance, 12/25/23 11:58:00 AM EDT, Capsule, [facility] #[id number], Partial fill upon patient request if the [...] Refills, Maintenance, 06/28/24 10:28:00 AM EDT, Solution, [facility] #[id number], Partial fill upon patient request if the [...] 3:47:00 PM EDT, Route to Pharmacy Electronically, [facility] #[id number], Partial fill upon patient request if the [...] 08/08/24 10:42:00 AM EDT, Route toPharmacy Electronically, [facility][id number], 188, cm, 07/26/24 12:48:00 EDT, Height, 139.3, kg, 07/26/24 12:48:00 EDT, Dry Weight Start Date: 08/08/24 Status: Ordered Quantity: 30.0 Unit: tablet Repeat number: 1 levothyroxine 0.1 mg oral tablet 1 tablet, By Mouth, Daily, # 30 tablet, 2 Refills, Maintenance, 05/16/21 10:10:00 AM EDT, [facility] #[id number], 188, cm, 03/29/21 2:00:00 EDT, Height, 138.4, [...] 4:11:00 PM EST, Route to Pharmacy Electronically, [facility] #[id number] Tablet, Partial fill upon patient request if [...] 0 Refills, Maintenance, 06/28/24 10:28:00 AM EDT, [facility] #[id number], Partial fill upon patient request if the [...] 5 Refills, Maintenance, 09/24/24 7:46:00 AM EST, [facility], Please ask patient to call the [...] Maintenance, 06/28/24 10:28:00 AM EDT, DIS Tablet, [facility] #[id number], Partial fill upon patient request if the [...] Refills, Maintenance, 06/28/24 10:28:00 AM EDT, Tablet, [facility] #[id number], Partial fill upon patient request if the [...] Refills 0, Tot. Refills 0, Maintenance, call [phone] to book ultrasound TODAY!, 03/29/21 1:38:00 AM EDT, Supply Start Date: 03/29/21 Status: Ordered Quantity: 1.0 Unit: kit Repeat number: 1 Ventolin HFA 108 mcg/inh inhalation aerosol with adapter 2 puffs, Inhalation, Every 4 hours, PRN IF NEEDED FOR WHEEZING (BULK), # 18 Gm, 5 Refills, Maintenance, 08/27/24 4:15:00 PM EST, [facility], 188, cm, 08/23/24 11:22:00 EST, Height, 138.1, kg,08/23/24 11:22:00 EST, Dry Weight Start Date: 08/27/24 Status: Ordered Quantity: 18.0 Unit: g Repeat number: 1 Vimpat 150 mg oral tablet 1 tablet = 150 mg, By Mouth, 2 times a day, # 28 tablet, 0 Refills, Maintenance, 10/24/19 11:29:00 AM EST, Tablet, [facility] #[id number], 188, cm, 10/24/19 7:40:00 EST, Height, 136.5, [...] Care team information Care Team Personnel Name: Luis FOX, Keyanna Position: [facility] RN Member Role: Primary Care Nurse Name: Carley Hopper RN Position: S RN Member Role: Primary Care Nurse Name: Pilar Bradley RN Position: S RN Member Role: Primary Care Nurse Name: Florencia Savage RN Position: S RN Member Role: Primary Care Nurse Name: Paola Donovan NP Position: [facility] PCO Associate Professional Member Role: PCP Address: [address] [place] [phone]- Telecom: Name: Alyssa Taylor RN Position: [facility] RN Member Role: Primary Care Nurse Name: Casi Bruno RN Position: [facility] Onco RN Member Role: Primary Care Nurse Name: Sang Lopez RN Position: [facility] Onco RN Member Role: Primary Care Nurse Name: Diana Donahue LPN Position: [facility] RN Member Role: Primary Care Nurse Care Team Related Persons Name: RICCARDO DIA Name: PEDRO DIA Insurance Providers Guarantor name: [facility] Plan Information #: 1 Payer: [facility] Member Number: NA Policy Number: NA Group Number: NA
[2024-10-16 12:31] LABS: Basophils Percent Auto 1.1 % (0-2); Eosinophils Absolute Auto 0.1 X10*3/uL (0.0-0.4); Eosinophils Percent Auto 3.8 % (0-4); Hematocrit 30.8 % (42.0-52.0); Hemoglobin 10.8 g/dl (14.0-18.0); Imm Gran Abs Auto 0.07 X10*3/uL (0.00-0.03); Imm Gran Pct Auto 3.8 % (0.0-0.4); Lymphocytes Absolute Auto 0.5 X10*3/uL (1.2-4.9); Lymphocytes Percent Auto 25.7 % (20-40); MANUAL DIFF FLAG SCAN; Mean Corpuscular HGB Conc 35.1 g/dl (31.0-36.0); Mean Corpuscular Volume 94.2 fL (80.0-98.0); Monocytes Absolute Auto 0.4 X10*3/uL (0.1-1.2); Monocytes Percent Auto 20.8 % (2-11); Neutrophils Absolute Auto 0.8 x10*3/uL (2.0-8.3); Neutrophils Percent Auto 44.8 % (45-73); Red Blood Count 3.27 X10*6/uL (4.60-5.80); SCAN SMEAR FLAG 1
[2024-10-16 12:34] LABS: NRBC Pct Auto 1.1 /100WBC (0.0-0.2)
[2024-10-16 12:36] LABS: White Blood Count 1.8 X10*3/uL (4.8-10.8)
[2024-10-16 12:37] LABS: Alanine Aminotransferase 25 U/L (0-40); Albumin Level 3.4 g/dL (3.5-5.0); Alkaline Phosphatase 93 U/L (39-117); Anion Gap 10 (12-20); Aspartate Amino Transferase 22 U/L (5-37); Bilirubin Direct < 0.2 mg/dL (0.0-0.5); Bilirubin Total 0.2 mg/dL (0.0-1.0); Blood Urea Nitrogen 8 mg/dL (9-16); Calcium 8.6 mg/dL (8.4-10.2); Carbon Dioxide 24 mmol/L (22-29); Chloride 110 mmol/L (96-108); Creatinine Clr Calc Pharmacy 149.8; Estimated Glomerular Filt Rate > 60; Glucose Random 117 mg/dL (60-115); Lipase 19 U/L (8-78); Sodium 140 mmol/L (135-145); Total Protein 6.4 g/dL (6.5-8.0)
[2024-10-16 12:42] LABS: B Type Natriuretic Peptide < 10 pg/mL (<100)
[2024-10-16 12:45] LABS: Troponin-I High Sensitivity < 2.7 ng/L (<3.5-35.0)
[2024-10-16 12:46] LABS: Platelet Count 149 X10*3/uL (160-400)
[2024-10-16 12:47] LABS: Mean Platelet Volume 8.9 fL (9.4-12.4); SLIDE REVIEW VERIFIED
--- NOTE | 2024-10-16 15:07 | MHC.CM.PN ---
CM RECEIVED CONSULT FROM ED MD LONGO, PT W/TBI FROM AGE 13YO LIVES W/MOM RICCARDO WHO REPORTS SHE IS PT'S GUARDIAN, PAPERWORK REQUESTED, PT USES A ROLLATOR WALKER AT [facility] HOWEVER IS CURRENTLY UNABLE TO WALK. NO PREFERENCE IN SNF'S HOWEVER WOULD LIKE PT SOMEWHERE CLOSE TO HOME. RICCARDO REPORTS PT IS CURRENTLY RECEIVING CHEMO AT [facility] PT'S ONCOLOGIST IS DR. LOGAN, RICCARDO REPORTS PT WAS DUE FOR CHEMO LAST THURSDAY 10/11 HOWEVER THEY POSTPONED UNTIL THIS COMING WEDNESDAY 10/18 HOWEVER PT WILL LIKELY STILL BE IN ED AWAITING STR PLACEMENT SO RCICARDO WILL CONTACT ROLL WEIGHER DR AT [facility] TO CANCEL AND LET THEM KNOW WHAT IS GOING ON. PCP VERIFIED AND SNF REFERRAL PLACED.
[2024-10-16 15:31] VITALS: BP 128/74; PULSE 70; RESP 16; TEMP 36.6; O2SAT 98
[2024-10-16 17:57] LABS: Appearance Urine Clear; Color Urine Yellow; Glucose Urine UA Negative (Negative); Leukocyte Esterase Urine Negative (Negative); Nitrite Urine Negative (Negative); PH 6.5 (5.0-9.0); Urine Blood Negative (Negative); Urine Ketones Negative (Negative); Urine Protein Negative (Neg-Trace)
[2024-10-16 18:00] VITALS: BP 114/70; PULSE 78; RESP 16; TEMP 36.8; O2SAT 98
--- NOTE | 2024-10-16 19:26 | PC.NURSE ---
This RN assumed pt care @ 1900. Pt a&ox3, no signs of distress. Pt sitting up in bed eating dinner Pts mom @ bedside Plan of care ongoing.
[2024-10-17 06:45] VITALS: BP 127/67; PULSE 59; RESP 18; TEMP 36.6; O2SAT 94
--- NOTE | 2024-10-17 09:51 | MHC.CM.PN ---
Addendum entered by Ewelina Zimmerman RN 10/17/24 16:07: [facility] FOLLOWING AND HOME MED LIST SENT. Addendum entered by Ewelina Zimmerman RN 10/17/24 16:06: [place]/ALEX[place]DRA DECLINED PT, [facility]. Addendum entered by Ewelina Zimmerman RN 10/17/24 14:05: SNF/AR MAY NEED CM TO CONFIRM PT CAN POSTPONE CHEMO UNTIL AFTER REHAB IS COMPLETE, PT GOES TO [facility] AND SEES DR. LOGAN FOR ONCOLOGY. Addendum entered by Ewelina Zimmerman RN 10/17/24 13:58: CM MET W/PT'S MOM RICCARDO AND PT AT BEDSIDE, PT'S MOM BROUGHT IN MED LIST AND BOX OF LOVENOX INJECTIONS, RICCARDO REPORTS PT WAS ON COUMADIN HOWEVER WAS CHANGED TO INJECTIONS, RICCARDO ALSO REPORTS SHE FORGOT TO LOOK FOR GUARDIANSHIP PAPERWORK HOWEVER WILL LOOK FOR IT WHEN SHE GOES HOME THIS AFTERNOON. RICCARDO ALSO REPORTS THAT PT HAS NEVER BEEN A PART OF DDS OR [facility]. RICCARDO IS REQUESTING PT GO TO AN ACUTE REHAB INSTEAD OF STR, REFERRAL PLACED TO ALL 3 ACUTE REHABS, NO PREFERENCE. HOME MED LIST TO BE SENT TO SNF/AR REF ONCE COMPLETED HOWEVER PT STILL HAS NO MEDS IN [facility]. Original Note: EMR REVIEWEEDPIONEER LUIS INTERESTED AND ASKING QUESTIONS, [facility] ALSO INTERESTED HOWEVER NO MALE BED AND WILL FOLLOW, CM WILL FOLLOW UP W/PT'S MOM RICCARDO TO REITERATE WE WILL NEED COPY OF GUARDIANSHIP AND FOLLOW UP ON VOICEMAIL CM LEFT RICCARDO YESTERDAY AFTERNOON ENQUIRING ON DDS/[facility] SERVICES, CM WILL CONT TO FOLLOW.
--- NOTE | 2024-10-17 10:21 | PC.NURSE ---
pt alert to person and is aware he is in the hospital but thought he was in [place], initially thought it is 2027 but is aware Trump will be present in a few weeks. rr equal/non lungs labored,lungs clear, pt currently denying pain/discomfort, fall precautions intact, call [facility] within reach, able to make his needs known- plan of care ongoing
[2024-10-17 14:00] VITALS: BP 121/66; PULSE 65; RESP 14; TEMP 37.1; O2SAT 96
--- NOTE | 2024-10-17 14:58 | PHA.MEDREC ---
Addendum entered by Luis M Olivares [facility] 10/17/24 15:25: MED REC CHECKED BY [facility] Original Note: Pharmacy Consult ? Medication Reconciliation Pharmacy has completed the medication reconciliation. Used list from [facility]. Confirmed enoxaparin with patient's mom, Paula, at bedside (135 mg q12h), he last had it Friday at 9AM. Paula reports famotidine replaced omeprazole, which she has to take out of the medbox from [facility]. She confirmed lomotil and colestipol which he has started. Paula also gives him an iron supplement around bedtime.
--- NOTE | 2024-10-17 15:47 | PC.NURSE ---
called pharmacy for missing meds, additionally, called main ED to obtain supplies to draw patients labs as there is not the proper things needed here on overflow
[2024-10-17 16:18] LABS: Hematocrit 33.7 % (42.0-52.0); Hemoglobin 11.7 g/dl (14.0-18.0); Mean Corpuscular HGB Conc 34.7 g/dl (31.0-36.0); Mean Corpuscular Hemoglobin 32.7 pg (27.0-33.0); Mean Corpuscular Volume 94.1 fL (80.0-98.0); Mean Platelet Volume 8.7 fL (9.4-12.4); Platelet Count 163 X10*3/uL (160-400); Red Blood Count 3.58 X10*6/uL (4.60-5.80); Red Cell Distribution Width 16.4 % (11.0-16.0)
[2024-10-17 16:21] LABS: NRBC Pct Auto 1.3 /100WBC (0.0-0.2); White Blood Count 2.3 X10*3/uL (4.8-10.8)
[2024-10-17 16:26] LABS: Prothrombin Time 11.5 SEC (10.9-12.4)
[2024-10-17 16:29] LABS: Partial Thromboplastin Time 27.8 SEC (26.0-36.8)
[2024-10-17] MEDS: Enoxaparin Sodium 150 MG/ML SYRINGE 135 MG SUBCUT (16:59)
[2024-10-17] MEDS: Famotidine 20 MG TABLET PO (16:59)
[2024-10-17 20:36] VITALS: BP 130/70; PULSE 67; RESP 18; TEMP 37.4; O2SAT 95
--- NOTE | 2024-10-17 21:26 | MHC.EDTECH ---
Patient incontinent of stool. Cleaned patient placed new brief on patient. All current needs met.
[2024-10-17] MEDS: Atorvastatin Calcium 10 MG TABLET PO (21:48)
[2024-10-17] MEDS: Lacosamide 100 MG TABLET PO (21:48)
[2024-10-17] MEDS: Amitriptyline HCl 50 MG TABLET PO (21:48)
[2024-10-17] MEDS: carBAMazepine ER 100 MG TAB.ER.12H 300 MG PO (21:48)
--- NOTE | 2024-10-17 23:36 | PC.NURSE ---
Patient is alert and oriented x3, no s/s of distress noted. VSS. Patient denies any pain. Patient is able to make his needs know, call [facility] in reach, plan of care ongoing.
[2024-10-18 01:07] VITALS: BP 117/65; PULSE 70; RESP 16; TEMP 37.2; O2SAT 93
[2024-10-18] MEDS: Enoxaparin Sodium 150 MG/ML SYRINGE 135 MG SUBCUT ×2 (03:32→16:27)
--- NOTE | 2024-10-18 03:35 | MHC.EDTECH ---
approx 400ml voided and emptied from urinal. TW asked PT if he needed to be changed and he stated he would like to be changed in the morning time
[2024-10-18 06:00] VITALS: BP 113/62; PULSE 73; RESP 20; TEMP 36.3; O2SAT 94
[2024-10-18 06:00] LABS: Hematocrit 32.7 % (42.0-52.0); Hemoglobin 11.3 g/dl (14.0-18.0); Mean Corpuscular HGB Conc 34.6 g/dl (31.0-36.0); Mean Corpuscular Hemoglobin 32.8 pg (27.0-33.0); Mean Corpuscular Volume 95.1 fL (80.0-98.0); Mean Platelet Volume 8.6 fL (9.4-12.4); Platelet Count 159 X10*3/uL (160-400); Red Blood Count 3.44 X10*6/uL (4.60-5.80); Red Cell Distribution Width 16.4 % (11.0-16.0); White Blood Count 3.1 X10*3/uL (4.8-10.8)
[2024-10-18] MEDS: Fluticasone/Vilanterol 100/25 BLST.W.DEV 1 PUFF INHALE (07:22)
[2024-10-18 07:24] VITALS: PULSE 75; RESP 16; O2SAT 96
[2024-10-18] MEDS: Ferrous Sulfate 324 MG TABLET.DR PO (09:05)
[2024-10-18] MEDS: Lacosamide 100 MG TABLET PO ×2 (09:05→21:09)
[2024-10-18] MEDS: Famotidine 20 MG TABLET PO (09:05)
[2024-10-18] MEDS: carBAMazepine ER 100 MG TAB.ER.12H 300 MG PO ×3 (09:05→21:09)
[2024-10-18] MEDS: carBAMazepine 100 MG TAB.CHEW PO (10:42)
[2024-10-18 11:43] LABS: COVID-19 Test Negative (Negative); IDNOW Serial# 55D5AD1C
--- NOTE | 2024-10-18 11:54 | MHC.CM.ED ---
Addendum entered by Susan Perez 10/18/24 14:44: [facility] is able to offer a bed but not until Friday. Patient and mother, Paula aware. Will wait until [facility] can obtain insurance auth from [facility] on . Paula thought patient had a guardianship, but did not. Patient's uncle is a business teacher and will be on-site tomorrow 10/19 to complete HCP. Original Note: Patient remains in ER overflow. [facility] is still reviewing. Questioning when patient is due for chemo next. Spoke with patient's guardian/mother, Paula, via telephone at [phone]. Patient was scheduled for chemo today. Paula cancelled that appointment and told the [facility] he will not be able to reschedule for at least 2 weeks. Per Paula, chemo is typically every 2 weeks. Paula aware [facility] will have to be able to offer a bed and [facility] would have to authorize. Paula verbalized understanding. Continue to monitor for d/c needs.
[2024-10-18 14:13] VITALS: BP 118/68; PULSE 77; RESP 16; TEMP 37.1; O2SAT 93
--- NOTE | 2024-10-18 15:41 | PC.NURSE ---
Assumed care of this patient at 1500, patient resting quietly on hospital bed with family at bedside at this time.
[2024-10-18 20:47] LABS: Prothrombin Time 11.4 SEC (10.9-12.4)
[2024-10-18 21:09] VITALS: BP 131/71; PULSE 78; RESP 19; TEMP 37.1; O2SAT 94
[2024-10-18] MEDS: Amitriptyline HCl 50 MG TABLET PO (21:09)
[2024-10-18] MEDS: Atorvastatin Calcium 10 MG TABLET PO (21:09)
[2024-10-19] MEDS: Enoxaparin Sodium 150 MG/ML SYRINGE 135 MG SUBCUT ×2 (05:16→15:46)
[2024-10-19 06:21] VITALS: BP 113/63; PULSE 86; RESP 20; TEMP 37.1; O2SAT 93
[2024-10-19] MEDS: Fluticasone/Vilanterol 100/25 BLST.W.DEV 1 PUFF INHALE (08:18)
[2024-10-19 08:19] VITALS: PULSE 90; RESP 16; O2SAT 90
--- NOTE | 2024-10-19 09:19 | MHC.EDTECH ---
Assisted patient with personal hygiene. Changed patients gown and linen.
--- NOTE | 2024-10-19 09:30 | PC.NURSE ---
Med administration delayed d/t meds not being in pyxis, pharmacy notified.
[2024-10-19] MEDS: Lacosamide 100 MG TABLET PO ×2 (09:36→21:20)
[2024-10-19] MEDS: carBAMazepine ER 100 MG TAB.ER.12H 300 MG PO ×3 (09:36→21:20)
[2024-10-19] MEDS: Ferrous Sulfate 324 MG TABLET.DR PO (09:37)
[2024-10-19] MEDS: Famotidine 20 MG TABLET PO (09:37)
[2024-10-19] MEDS: carBAMazepine 100 MG TAB.CHEW PO (11:20)
--- NOTE | 2024-10-19 13:20 | MHC.EDTECH ---
Assisted patient with personal hygiene. Removed brief and cleaned patient after large bowel movement, replaced linen.
[2024-10-19 14:41] VITALS: BP 118/77; PULSE 82; RESP 20; TEMP 36.9; O2SAT 92
[2024-10-19] MEDS: Atorvastatin Calcium 10 MG TABLET PO (21:20)
[2024-10-19] MEDS: Amitriptyline HCl 50 MG TABLET PO (21:20)
[2024-10-19 21:44] VITALS: BP 118/72; PULSE 81; RESP 16; TEMP 37.2; O2SAT 93
--- NOTE | 2024-10-20 00:44 | PC.NURSE ---
Patient sleeping at this time. Respirations even/unlabored. Medicated earlier this shift per orders. Patient aware of plan to discharge to [facility] tomorrow per Case Management. No apparent distress. Care ongoing by this RN.
[2024-10-20] MEDS: Enoxaparin Sodium 150 MG/ML SYRINGE 135 MG SUBCUT ×2 (04:18→15:44)
[2024-10-20 06:18] VITALS: BP 113/67; PULSE 74; RESP 16; TEMP 36.9; O2SAT 98
--- NOTE | 2024-10-20 06:38 | MHC.EDTECH ---
Patient slept most of the night ,am rounding and vitals done ,300 ml urine empty from urinal ,no apparent distress noted .Call [facility] within Pt reach .
[2024-10-20] MEDS: Famotidine 20 MG TABLET PO (08:59)
[2024-10-20] MEDS: carBAMazepine ER 100 MG TAB.ER.12H 300 MG PO ×3 (08:59→20:58)
[2024-10-20] MEDS: Lacosamide 100 MG TABLET PO ×2 (08:59→20:58)
[2024-10-20] MEDS: carBAMazepine 100 MG TAB.CHEW PO (08:59)
[2024-10-20] MEDS: Ferrous Sulfate 324 MG TABLET.DR PO (08:59)
--- NOTE | 2024-10-20 09:14 | MHC.EDTECH ---
pt ate 100% of his breakfast and 360cc of fluids
--- NOTE | 2024-10-20 11:00 | MHC.EDTECH ---
This tech setup the pt with a complete bed bath. Pt did well with a setup and was able to clean his own face and body. Pt also had a large brown bowel movement. I did have to assist pt with cleaning his backside.
[2024-10-20] MEDS: Fluticasone/Vilanterol 100/25 BLST.W.DEV 1 PUFF INHALE (11:13)
[2024-10-20 11:15] VITALS: PULSE 94; RESP 16; O2SAT 93
[2024-10-20 13:20] VITALS: BP 136/86; PULSE 91; RESP 18; TEMP 37.4; O2SAT 93
--- NOTE | 2024-10-20 14:13 | MHC.CM.ED ---
Patient remains in ER overflow. Per ari Castillo for [facility], no bed available today. Possible bed available tomorrow 10/21. Spoke with patient's mother, Paula, via telephone at [phone]. Paula states [facility] is still 1st choice because patient will only receive 1 hour of therapy at a SNF. Anna made aware and will touch base with CM tomorrow. Continue to monitor for d/c needs.
[2024-10-20 18:06] VITALS: BP 124/79; PULSE 98; RESP 20; TEMP 37.3; O2SAT 94
[2024-10-20] MEDS: Atorvastatin Calcium 10 MG TABLET PO (20:58)
[2024-10-20] MEDS: Amitriptyline HCl 50 MG TABLET PO (21:01)
[2024-10-21] MEDS: Enoxaparin Sodium 150 MG/ML SYRINGE 135 MG SUBCUT (04:39)
[2024-10-21 05:28] VITALS: BP 111/59; PULSE 68; RESP 16; TEMP 37.2; O2SAT 94
[2024-10-21] MEDS: Lacosamide 100 MG TABLET PO (08:26)
[2024-10-21] MEDS: carBAMazepine ER 100 MG TAB.ER.12H 300 MG PO ×2 (08:26→14:56)
[2024-10-21] MEDS: Famotidine 20 MG TABLET PO (08:26)
[2024-10-21] MEDS: Ferrous Sulfate 324 MG TABLET.DR PO (08:26)
[2024-10-21 08:29] VITALS: BP 125/76; PULSE 80; RESP 18; TEMP 36.6; O2SAT 93
--- NOTE | 2024-10-21 08:43 | MHC.CM.ED ---
Patient remains in ER overflow. [facility] requesting updated clinical info including physical therapy and occupational therapy note. PT asked to re-see patient. OT eval ordered. Continue to monitor for d/c needs.
--- NOTE | 2024-10-21 09:33 | PC.NURSE ---
PT at bedside, patient ambulating with walker, 250 cc urine emptied from patient urinal.
[2024-10-21] MEDS: carBAMazepine 100 MG TAB.CHEW PO (09:52)
--- NOTE | 2024-10-21 10:14 | PC.NURSE ---
assumed care of patient at 0700, patient sat up and ate breakfast this AM. VSS, resp even and unlabored. patient medicated per DEC. patient ambulated with walker with PT, patient now sitting in recliner
[2024-10-21 14:16] VITALS: BP 110/72; PULSE 80; RESP 16; TEMP 37.2; O2SAT 96
--- NOTE | 2024-10-21 15:08 | MHC.CM.ED ---
Insurance auth has been obtained by [facility]. Patient can leave at 530pm. [facility] booked. Med nec with chart. Patient, mother Renetta Mitchell RN and Liliana WERNER aware. Continue to monitor for d/c needs.
[2024-10-21 15:51] VITALS: BP 157/82; PULSE 101; RESP 16; TEMP 37.3; O2SAT 95
== END 2024-10-21 16:05 | disposition skilled nursing facility (03) ==
PROVIDERS: Nurse Practitioner Family; Physician Assistant Medical; Emergency Provider Emergency Medicine; PCP Nurse Practitioner Family
DX: S09.90XA Unspecified injury of head, initial encounter (principal); W06.XXXA Fall from bed, initial encounter; C20 Malignant neoplasm of rectum; Z11.52 Encounter for screening for COVID-19; Z92.21 Personal history of antineoplastic chemotherapy; Z86.718 Personal history of other venous thrombosis and embolism; Z79.01 Long term (current) use of anticoagulants; Y93.89 Activity, other specified; Y92.013 Bedroom of single-family (private) house as the place of occurrence of the external cause; Y99.9 Unspecified external cause status
CPT/HCPCS: 36415; 70450; 71045; 80048; 80076; 81003; 83690; 83880; 84484; 85025; 85027; 85610; 85730; 87635; 93005; 94640; 96372; 97116; 97162; 97166; 97530; 99285; J1650

== ENCOUNTER → 2024-10-16 11:36 | Outpatient (BNV) | payer MEDICARE, SELFPAY | PROVIDERS: Emergency Provider Emergency Medicine; PCP Nurse Practitioner Family; Visit Provider Internal Medicine Cardiovascular Disease | DX: R94.31 Abnormal electrocardiogram [ECG] [EKG] (principal); Z79.01 Long term (current) use of anticoagulants | CPT/HCPCS: 93010 ==

== ENCOUNTER → 2024-10-16 11:37 | Outpatient (BNV) | payer OTHER, MEDICAID, SELFPAY | PROVIDERS: Emergency Provider Emergency Medicine; PCP Nurse Practitioner Family; Visit Provider Radiology Vascular & Interventional Radiology | DX: S09.90XA Unspecified injury of head, initial encounter (principal); W19.XXXA Unspecified fall, initial encounter | CPT/HCPCS: 71045 ==